=== PATIENT | female | born 1950 | race Asian ===

== ENCOUNTER 2023-10-31 10:38 | Emergency (ER) | payer MEDICAID ==
[~2023-10-31] VITALS: Ht 152.4 cm; Wt 63.5 kg
[2023-10-31 10:38] VITALS: BP_SYST 132; PULSE 58; RESP 18; TEMP 97.1; O2SAT 98
[2023-10-31 11:10] LABS: BILIRUBIN,URINE NEGATIVE (NEGATIVE); COLOR,URINE YELLOW (YELLOW); GLUCOSE,URINE NEGATIVE (NEGATIVE); KETONES,URINE NEGATIVE (NEGATIVE); LEUKOCYTE ESTERASE ,URINE 1+ (NEGATIVE); NITRITE, URINE NEGATIVE (NEGATIVE); PROTEIN URINE NEGATIVE (NEGATIVE); UROBILINOGEN,URINE 0.2 (0.2-1.0)
[2023-10-31 11:18] LABS: BLOOD, URINE TRACE (NEGATIVE); CLARITY/URINE SLIGHTLY HAZY (CLEAR)
[2023-10-31] MEDS: IBUPROFEN 800 MG TABLET PO ONE (11:30)
[2023-10-31 11:31] LABS: BACTERIA,URINE None Seen /HPF (None Seen)
[2023-10-31] MEDS: ONDANSETRON 4 MG ODT TAB PO ONE (11:33)
[2023-10-31 11:51] LABS: BASOPHILS % (AUTO) 0.2 % (0.0-2.0); EOSINOPHILS # (AUTO) 0.3 K/uL (0.0-0.4); EOSINOPHILS % (AUTO) 2.5 % (0.0-4.0); HEMATOCRIT 44.3 % (36-48); HEMOGLOBIN 14.7 g/dL (12.0-16.0); LYMPHOCYTES # (AUTO) 2.3 K/uL (1.0-5.5); LYMPHOCYTES % (AUTO) 20.2 % (20.5-51.5); MEAN CORPUSCULAR HEMOGLOBIN 31 pg (27-31); MEAN CORPUSCULAR HGB CONC 33 % (32-36); MEAN CORPUSCULAR VOLUME 94 fL (79.0-98.0); MONOCYTES # (AUTO) 0.4 K/uL (0.0-1.0); MONOCYTES % (AUTO) 3.2 % (1.7-9.3); NEUTROPHILS # (AUTO) 8.6 K/uL (1.8-7.7); NEUTROPHILS % (AUTO) 73.9 % (40.0-70.0); PLATELET COUNT (AUTO) 207 K/uL (130-430); RED BLOOD CELL COUNT(AUTO) 4.69 MIL/uL (4.2-6.2); RED CELL DISTRIBUTION WIDTH 13.4 % (9.0-15.0); WHITE BLOOD COUNT (AUTO) 11.6 K/uL (4.8-10.8)
[2023-10-31 12:05] LABS: PROTHROMBIN TIME 10.7 SECS (9.5-12.5)
[2023-10-31 12:17] LABS: ALANINE AMINOTRANSFERASE 18 U/L (12-78); ALBUMIN 3.6 g/dL (3.4-4.8); AMYLASE 47 U/L (0-100); ANION GAP 10 (5-15); ASPARTATE AMINOTRANSFERASE 21 U/L (10-37); BILIRUBIN,DIRECT 0.1 mg/dL (0.0-0.3); CALCIUM 8.8 mg/dL (8.4-11.0); CARBON DIOXIDE 23 mmol/L (23-29); CHLORIDE 103 mmol/L (98-107); CREATININE 0.72 mg/dL (0.55-1.30); GLUCOSE 143 mg/dL (74-106); LIPASE 46 U/L (16-77); POTASSIUM 3.7 mmol/L (3.5-5.1); SODIUM SERUM 136 mmol/L (136-145); TOTAL BILIRUBIN 0.6 mg/dL (0.0-1.0); TOTAL PROTEIN, SERUM 7.5 g/dL (6.4-8.3); UREA NITROGEN, BLOOD 9 mg/dL (8-21)
[2023-10-31] MEDS ORDERED: AMOX-423 PO (12:39)
[2023-10-31] MEDS ORDERED: IBUP-1969 PO (12:39)
[2023-10-31] MEDS ORDERED: ONDA-8 TL (12:39)
[2023-10-31 12:48] LABS: ACETONE, SERUM NEGATIVE (NEGATIVE)
[2023-10-31 12:55] VITALS: BP_SYST 132; PULSE 58; RESP 18; TEMP 97.1; O2SAT 98
== END 2023-10-31 12:56 | disposition home or self-care (01) ==
LOC: SED 10:38
DX: K52.9 Noninfective gastroenteritis and colitis, unspecified (principal); R10.84 Generalized abdominal pain; R11.2 Nausea with vomiting, unspecified
CPT/HCPCS: 36415; 80048; 80076; 81000; 81001; 81015; 82009; 82150; 83605; 83690; 85025; 85610; 85730; 99284; Q0162